=== PATIENT | female | born 1985 | race Caucasian/White ===

== ENCOUNTER 2020-02-19 06:05 | Inpatient (IN) | payer BC ==
[~2020-02-19] VITALS: Ht 180.3 cm; Wt 88.6 kg
[~2020-02-19 06:05] MED LIST: ACET325T14 PO; IBUP-1223 PO; OXYC-302 PO; PNV11TAB5 PO
[2020-02-19] MEDS ORDERED: OXYTOCIN 30U/ 0.9% NaCL 500ML 500 ML IV ONE ×2 (06:08→16:37)
[2020-02-19] MEDS ORDERED: D5%-LACTATED RINGERS 1,000 ML IV SCH (06:08)
[2020-02-19] MEDS ORDERED: OXYTOCIN 30U/ 0.9% NaCL 500ML 500 ML IV PRN (06:08)
[2020-02-19] MEDS ORDERED: NEWBORN KIT ONE (06:17)
[2020-02-19] MEDS ORDERED: LIDOCAINE 1%, 20ML ONE (06:17)
[2020-02-19] MEDS ORDERED: MISOPROSTOL 200 MCG TABLET ONE (06:18)
[2020-02-19] MEDS ORDERED: OXYTOCIN 30U/ 0.9% NaCL 500ML 500 ML ONE ×2 (06:18→16:33)
[2020-02-19 06:30] VITALS: BP 132/100
[2020-02-19] MEDS ORDERED: METOCLOPRAMIDE 5 MG/ML, 2ML IVPush PRN (06:30)
[2020-02-19] MEDS ORDERED: MISOPROSTOL 25 MCG TABLET VG PRN (06:30)
[2020-02-19] MEDS ORDERED: ONDANSETRON 2MG/ML, 2ML IVPush PRN (06:30)
[2020-02-19] MEDS: LACTATED RINGERS 1,000 ML IV SCH ×2 (06:30→14:19)
[2020-02-19] MEDS ORDERED: CALCIUM CARBONATE 500 MG TAB.CHEW PO PRN (06:30)
[2020-02-19] MEDS ORDERED: TERBUTALINE 1 MG/ML, 1ML SQ PRN (06:30)
[2020-02-19] MEDS ORDERED: ALUMINUM/MAG/SIMETHICONE 30 ML UDC PO PRN (06:30)
[2020-02-19] MEDS ORDERED: FENTANYL PF 100 MCG/2ML IV PRN (06:30)
[2020-02-19] MEDS ORDERED: FENTANYL PF 100 MCG/2ML IVPush PRN (06:30)
[2020-02-19] MEDS ORDERED: TERBUTALINE 1 MG/ML, 1ML IVPush PRN (06:30)
[2020-02-19] MEDS ORDERED: SODIUM CITRATE/CITRIC ACID 30 ML UDC PO PRN (06:30)
[2020-02-19 06:32] LABS: BASOPHILS # (AUTO) 0.03 x10^3/uL (0-0.1); BASOPHILS % (AUTO) 0 % (0-1); EOSINOPHILS # (AUTO) 0.06 x10^3/uL (0-0.4); EOSINOPHILS % (AUTO) 1 % (1-7); LYMPHOCYTES # (AUTO) 1.72 x10^3/uL (1-3.4); LYMPHOCYTES % (AUTO) 18 % (22-44); MD NO; MEAN CORPUSCULAR HEMOGLOBIN 27.8 pg (27.0-34.8); MEAN CORPUSCULAR HGB CONC 33.1 g/dL (32.4-35.8); MEAN PLATELET VOLUME 8.9 fL (7.4-10.4); MONOCYTES # (AUTO) 0.66 x10^3/uL (0.2-0.8); MONOCYTES % (AUTO) 7 % (2-9); NEUTROPHILS # (AUTO) 7.06 x10^3/uL (1.8-6.8); NEUTROPHILS % (AUTO) 74 % (42-75); PLATELET COUNT 242 x10^3/uL (130-400); RED BLOOD COUNT 4.07 x10^6/uL (3.82-5.3); RED CELL DISTRIBUTION WIDTH 13.9 % (9.6-15.2)
[2020-02-19 06:57] LABS: ALANINE AMINOTRANSFERASE 11 U/L (12-78); ALBUMIN 2.5 g/dL (3.4-5.0); ANION GAP 6 mmol/L (5-15); CHLORIDE 107 mmol/L (98-107); CREATININE 0.55 mg/dL (0.55-1.02)
[2020-02-19 06:59] LABS: ALKALINE PHOSPHATASE 101 U/L (45-117); TOTAL PROTEIN 6.8 g/dL (6.4-8.2)
[2020-02-19 07:23] LABS: BILIRUBIN, DIRECT < 0.1 mg/dL (0.1-0.2); BILIRUBIN,TOTAL 0.2 mg/dL (0.2-1.0)
[2020-02-19] MEDS ORDERED: FENTANYL/BUPIV./NS/PF 250 ML EPIDCONT SCH ×2 (07:23→14:19)
[2020-02-19] MEDS ORDERED: FENTANYL PF 500 MCG, BUPIVACAINE/PF 0.5%, 30ML 62.5 ML in SODIUM CHLORIDE 0.9% 177.5 ML EPIDCONT SCH ×2 (08:00→14:30)
[2020-02-19] MEDS ORDERED: LACTATED RINGERS 1,000 ML IV PRN (11:28)
[2020-02-19] MEDS ORDERED: BETAMETHASONE 6 MG/ML, 5ML IM ONE (11:30)
[2020-02-19] MEDS ORDERED: FENTANYL PF 100 MCG/2ML ONE (12:56)
[2020-02-19] MEDS ORDERED: BUPIVACAINE 0.25% ONE (13:55)
[2020-02-19] MEDS ORDERED: LACTATED RINGERS 1,000 ML IV SCH (14:19)
[2020-02-19] MEDS ORDERED: LACTATED RINGERS 1,000 ML IVBOLUS PRN (14:30)
[2020-02-19] MEDS ORDERED: EPHEDRINE 50 MG/ML, 1ML IVPush PRN (14:30)
[2020-02-19 15:34] LABS: MICROSCOPIC NOT IND
[2020-02-19 16:46] LABS: CREATININE,URINE RANDOM 42.3 mg/dL
[2020-02-19] MEDS ORDERED: MISOPROSTOL 200 MCG TABLET PR ONE (17:00)
[2020-02-19] MEDS: OXYTOCIN 30U/ 0.9% NaCL 500ML 500 ML IV SCH (19:44)
[2020-02-19 19:45] VITALS: BP 135/93
[2020-02-19] MEDS ORDERED: SIMETHICONE 80 MG CHEW TAB PO PRN (20:00)
[2020-02-19] MEDS: DOCUSATE 100 MG CAPSULE PO PRN (22:07)
[2020-02-19] MEDS: IBUPROFEN 600 MG TABLET PO PRN (22:07)
[2020-02-20 01:10] VITALS: BP 136/85
[2020-02-20 01:38] LABS: BASOPHILS # (AUTO) 0.03 x10^3/uL (0-0.1); BASOPHILS % (AUTO) 0 % (0-1); EOSINOPHILS # (AUTO) 0.03 x10^3/uL (0-0.4); EOSINOPHILS % (AUTO) 0 % (1-7); LYMPHOCYTES # (AUTO) 1.54 x10^3/uL (1-3.4); LYMPHOCYTES % (AUTO) 11 % (22-44); MD NO; MEAN CORPUSCULAR HEMOGLOBIN 27.7 pg (27.0-34.8); MEAN CORPUSCULAR HGB CONC 33.1 g/dL (32.4-35.8); MEAN CORPUSCULAR VOLUME 83.8 fL (80-100); MEAN PLATELET VOLUME 8.6 fL (7.4-10.4); MONOCYTES # (AUTO) 0.84 x10^3/uL (0.2-0.8); MONOCYTES % (AUTO) 6 % (2-9); NEUTROPHILS # (AUTO) 11.11 x10^3/uL (1.8-6.8); NEUTROPHILS % (AUTO) 82 % (42-75); PLATELET COUNT 183 x10^3/uL (130-400); RED BLOOD COUNT 3.61 x10^6/uL (3.82-5.3); RED CELL DISTRIBUTION WIDTH 14.1 % (9.6-15.2)
[2020-02-20 05:10] VITALS: BP 129/90
[2020-02-20] MEDS: IBUPROFEN 600 MG TABLET PO PRN ×3 (05:11→17:12)
[2020-02-20] MEDS: OXYTOCIN 30U/ 0.9% NaCL 500ML 500 ML IV SCH ×2 (05:44→15:44)
[2020-02-20 08:30] VITALS: BP 134/84
[2020-02-20] MEDS: DOCUSATE 100 MG CAPSULE PO PRN (08:34)
[2020-02-20] MEDS ORDERED: PRENATAL VIT/IRON/FA 1 EACH TABLET PO SCH (09:00)
[2020-02-20] MEDS ORDERED: IBUP-1222 PO (10:14)
[2020-02-20 12:00] VITALS: BP 134/87
[2020-02-20 16:06] VITALS: BP 132/89
== END 2020-02-20 17:38 | disposition home or self-care (01) | DRG 806 ==
LOC: LDIP 06:05 → 2NW 19:32
PROVIDERS: ADMIT Student in an Organized Health Care Education/Training Program; ATTEND Student in an Organized Health Care Education/Training Program
PROC: 10E0XZZ Delivery of Products of Conception, External Approach (ICD-10-PCS; principal; 2020-02-19)
PROC: 0KQM0ZZ Repair Perineum Muscle, Open Approach (ICD-10-PCS; 2020-02-19)
PROC: 10907ZC Drainage of Amniotic Fluid, Therapeutic from Products of Conception, Via Natural or Artificial Opening (ICD-10-PCS; 2020-02-19)
PROC: 3E0R3BZ Introduction of Anesthetic Agent into Spinal Canal, Percutaneous Approach (ICD-10-PCS; 2020-02-19)
PROC: 00HU33Z Insertion of Infusion Device into Spinal Canal, Percutaneous Approach (ICD-10-PCS; 2020-02-19)
PROC: 3E033VJ Introduction of Other Hormone into Peripheral Vein, Percutaneous Approach (ICD-10-PCS; 2020-02-19)
DX: O13.4 Gestational [pregnancy-induced] hypertension without significant proteinuria, complicating childbirth (principal); O99.354 Diseases of the nervous system complicating childbirth; Z37.0 Single live birth; Z3A.39 39 weeks gestation of pregnancy; Z80.3 Family history of malignant neoplasm of breast; Z82.3 Family history of stroke; G43.909 Migraine, unspecified, not intractable, without status migrainosus; O70.1 Second degree perineal laceration during delivery
CPT/HCPCS: 36415; S0020; 80053; 81003; 82248; 82570; 84156; 84550; 85025; 86592; 86850; 86900; G0378; J3010; J2590; J7050; J7120